=== PATIENT | male | born 1960 | race Caucasian/White ===

== ENCOUNTER → 2016-10-18 | Outpatient (CLI) | payer OTHER ==
[2016-10-18] VITALS (7 sets, daily range): BP systolic 99–152; BP diastolic 50–84
[~2016-10-18] MED LIST: CATHETER FLUSH 10 ML SYR IV PRN
--- NOTE | 2016-10-18 11:16 | STRESS TEST ---
PROCEDURE PHYSICIAN: YASMINE MEREDITH NUCLEAR MYOVIEW REPORT DATE OF PROCEDURE: 10/18/2016 REFERRING PHYSICIAN: Dr. Reddy. INDICATION: Chest pain. SUMMARY: The patient was injected with 10.86 mCi of technetium 99 Myoview and the resting images were obtained. With peak stress level the patient was injected with 32.3 mCi of technetium 99 Myoview. The test was supervised by Dr. Reddy. The resting and stress images were reviewed and compared in the short axis, horizontal long axis, and vertical long axis views. Review of the images showed diaphragmatic attenuation with typical male pattern. No significant ischemia or infarction seen. SSS is 0. TID value 0.97. On the gated images, the left ventricle appeared to be normal size with normal contractility. Calculated ejection fraction 64%. CONCLUSION: 1. Typical male pattern with no significant ischemia or infarction on SPECT images. 2. Normal left ventricular size with normal contractility. Calculated ejection fraction 64%. Job ID: [id number] Dictated Date: 10/18/2016 11:04:07 Sneller Hand Date: 10/18/2016 11:12:38 / [place]
== END ==
LOC: CARD 06:49
PROVIDERS: ATTEND Nurse Practitioner Family
DX: I10 Essential (primary) hypertension (principal); R07.9 Chest pain, unspecified
CPT/HCPCS: 78452; 93017

== ENCOUNTER → 2018-12-13 | Outpatient (CLI) | payer OTHER ==
[2018-12-13 12:17] LABS: ABG BASE EXCESS -0.6 MMOL/L (-2.5-2.5); ABG OXYGEN SATURATION 97 % (94-100); ABG PCO2 35 MMHG (35-45); ABG PH 7.43 (7.37-7.43); ABG PO2 79 MMHG (79-93); ABG TCO2 24.4 MMOL/L (21.0-31.0)
[2018-12-13 12:18] LABS: ALLENS TEST YES-POS; INSPIRED O2 ROOM AIR; PATIENT TEMP 96.9; VENTILATOR NO
--- NOTE | 2018-12-13 14:11 | Diagnostic Imaging Report ---
PROCEDURE: CT abdomen and pelvis without contrast. TECHNIQUE: Multiple contiguous axial images were obtained through the abdomen and pelvis without the use of intravenous contrast. Auto Exposure Controls were utilized during the CT exam to meet ALARA standards for radiation dose reduction. INDICATION: Generalized abdominal pain. FINDINGS: Imaging through the lung bases does show some linear scarring or atelectasis in the left lower lobe. Liver is unremarkable. No focal mass is seen. No biliary duct dilatation is identified. The pancreas and spleen are unremarkable. No adrenal mass is identified. No renal calculi or hydronephrosis is seen. The aorta is non-aneurysmal. The small and large bowel loops appear to be normal in caliber. No obstruction is seen. There is no ascites. The appendix is unremarkable. No central retroperitoneal or mesenteric lymphadenopathy is seen. Bladder and prostate are unremarkable. IMPRESSION: Essentially unremarkable noncontrast CT of the abdomen and pelvis. No acute feature is detected. Dictated by: Dictated on workstation # [id number]
--- NOTE | 2018-12-13 14:14 | Diagnostic Imaging Report ---
PROCEDURE: CT neck soft tissue without contrast. TECHNIQUE: Multiple contiguous axial images were obtained through the neck without the use of intravenous contrast. Auto Exposure Controls were utilized during the CT exam to meet ALARA standards for radiation dose reduction. INDICATION: Hyponatremia. COMPARISON: There are no prior studies available for comparison. FINDINGS: The oral cavity is difficult to evaluate due to streak artifact related to the patient's dental fillings. There is no obvious abnormality evident. There is no mass or adenopathy involving the neck. The submandibular and parotid glands appear symmetrical and within normal limits. The thyroid gland is generally unremarkable. Lung apices and intracranial contents, where visualized show no sign of an acute abnormality. There is mucosal thickening in the left maxillary antrum consistent with sinusitis. The bone windows show no evidence for fracture or for destructive lesion. IMPRESSION: 1. There is no mass or adenopathy involving the neck and there is no sign of an acute abnormality. 2. There is left maxillary sinusitis. Dictated by: Dictated on workstation # [id number]
== END ==
LOC: RAD 10:40
PROVIDERS: ATTEND Internal Medicine
DX: E87.1 Hypo-osmolality and hyponatremia (principal); J32.0 Chronic maxillary sinusitis; R10.9 Unspecified abdominal pain
CPT/HCPCS: 70490; 74176; 82805